=== PATIENT | female | born 1990 | race American Indian/Alaskan Native ===

== ENCOUNTER 2017-11-03 14:13 | Emergency (ER) | payer MEDICAID ==
--- NOTE | 2017-11-06 14:59 | ER ---
DATE SEEN: 11/03/2017 TIME SEEN: The patient was seen at 1435 hours. HISTORY OF PRESENT ILLNESS: This 27-year-old woman comes in with a history of her son having conjunctivitis for 2 days, got worse now. Both she and her daughter have itching in their eyes and rubbing their eyes. Mother is allergic to Ceclor. Otherwise mother is healthy. MEDICATIONS: No medications currently. ALLERGIES: Ceclor. REVIEW OF SYSTEMS: Negative. PHYSICAL EXAMINATION: VITAL SIGNS: Blood pressure 107/59, heart rate 85, respirations 15, oxygen saturation 98%, temperature is 36.8 degrees centigrade. HEENT: Mild injection of the sclera. Conjunctiva not injected. Subjective itching. No shiners. Nares negative. TMs negative. Pharynx without abnormality. No cervical adenopathy. No pretracheal adenopathy. No retroauricular adenopathy. LUNGS: Clear. HEART: Without murmur. ABDOMEN: Negative. ASSESSMENT/PLAN: Conjunctivitis. Treat with gentamicin ophthalmic drops 0.1%, 1-2 drops t.i.d. Follow up with doctor in one week if not improved. /[id number] ABBY/HENRI
== END 2017-11-03 15:21 | disposition home or self-care (01) ==
LOC: FB.ED 14:13
DX: H10.9 Unspecified conjunctivitis (principal)
CPT/HCPCS: 99283

== ENCOUNTER 2018-03-08 18:07 | Emergency (ER) | payer MEDICAID ==
--- NOTE | 2018-03-08 18:58 | EDM.PDOC ---
ED HPI GENERAL MEDICAL PROBLEM - General Stated Complaint: SOB Time Seen by Provider: 03/08/18 18:40 Source of Information: Reports: Patient History Limitations: Reports: No Limitations - History of Present Illness INITIAL COMMENTS - FREE TEXT/NARRATIVE: This pleasant 27-year-old woman states she has been coughing for a week and has sore throat and fever the last 2 days. She has mild anterior intercostal and also sternal chondral region discomfort with coughing. He notes discomfort in the (points to the intercostal region) intercostal muscles bilaterally anterior chest with her cough. Denies headaches, loss of consciousness or bowel discomfort GI symptoms of diarrhea or vomiting denies or frequency urgency dysuria symptoms. She is not . Has not been sexually active recently. 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: - Past Surgical History Female Surgical History: Reports: Section ED ROS GENERAL - Review of Systems Review Of Systems: See Below Constitutional: Reports: No Symptoms HEENT: Reports: Throat Pain Respiratory: Reports: Cough, Sputum, Other (Kilo sputum) Cardiovascular: Reports: No Symptoms Endocrine: Reports: No Symptoms GI/Abdominal: Reports: No Symptoms : Reports: No Symptoms Musculoskeletal: Reports: No Symptoms, Other (Chest wall discomfort and coughing ) Skin: Reports: No Symptoms Neurological: Reports: No Symptoms Psychiatric: Reports: No Symptoms Hematologic/Lymphatic: Reports: No Symptoms ED EXAM, GENERAL - Physical Exam Exam: See Below Free Text/Narrative:: Specimen particular fever sore throat and one week of coughing yellow productive sputum she is a nonsmoker Exam Limited By: No Limitations General Appearance: Alert, WD/WN, Mild Distress Eye Exam: Bilateral Eye: Normal Inspection Ears: Normal External Exam, Normal Canal, Hearing Grossly Normal, Normal TMs Ear Exam: Bilateral Ear: Auricle Normal, Canal Normal, TM normal Nose: Normal Inspection Throat/Mouth: Normal Inspection, Other (Minimal erythema) Head: Atraumatic, Normocephalic Neck: Normal Inspection, Supple, Non-Tender, Full Range of Motion Respiratory/Chest: No Respiratory Distress, Lungs Clear, Normal Breath Sounds, No Accessory Muscle Use, Chest Non-Tender Cardiovascular: Normal Peripheral Pulses, Regular Rate, Rhythm, No Edema, No JVD , No Murmur, No Rub Peripheral Pulses: 1+: Radial (L), Radial (R) GI/Abdominal: Normal Bowel Sounds, Soft, Non-Tender, No Organomegaly, No Distention, No Mass (Female) Exam: Deferred Rectal (Female) Exam: Deferred Back Exam: Normal Inspection, Full Range of Motion Extremities: Normal Inspection, Normal Range of Motion, Non-Tender, No Pedal Edema, Normal Capillary Refill Neurological: Alert, Oriented, CN II-XII Intact, Normal Cognition, Normal Gait, Normal Reflexes, No Motor/Sensory Deficits Psychiatric: Normal Affect, Normal Mood Skin Exam: Warm, Dry, Intact, Normal Color Lymphatic: No Adenopathy Course - Orders/Labs/Meds Orders: Active Orders 24 hr Category Date Time Status STREP SCRN A RAPID W CULT CONF [RM] Urgent Lab 03/08/18 18:45 Ordered Departure - Departure Time of Disposition: 18:50 Disposition: Home, Self-Care 01 Condition: Good Clinical Impression: Strep pharyngitis - Discharge Information Instructions: Strep Throat Referrals: Juni Campos MD [Primary Care Provider] - - My Orders Last 24 Hours: My Active Orders 03/08/18 18:45 STREP SCRN A RAPID W CULT CONF [RM] Urgent - Assessment/Plan Last 24 Hours: My Active Orders 03/08/18 18:45 STREP SCRN A RAPID W CULT CONF [RM] Urgent
[2018-03-08] MEDS ORDERED: Azithromycin 500 MG Tab PO ONE (19:03)
== END 2018-03-08 19:35 | disposition home or self-care (01) ==
LOC: FB.ED 18:07
DX: J02.0 Streptococcal pharyngitis (principal); Z88.1 Allergy status to other antibiotic agents
CPT/HCPCS: 87880; 99283; A9270

== ENCOUNTER 2018-08-16 14:35 | Emergency (ER) | payer MEDICAID ==
--- NOTE | 2018-08-16 15:22 | EDM.PDOC ---
ED HPI GENERAL MEDICAL PROBLEM - General Stated Complaint: STOMACH PAIN Time Seen by Provider: 08/16/18 15:00 Source of Information: Reports: Patient - History of Present Illness INITIAL COMMENTS - FREE TEXT/NARRATIVE: pt report having painful cramps all across her abd on and off X 6 weeks, report nausea and occasional emesis with this, also hard and painful BMs every other day , denies fever chills or any other associated sx or concerns, pt was seen at [place] for this 2 days ago, had a non-diagnostic CT and abd US along with unremarkable labs except for microscopic hematuria pt is on ABX for presumed UTI and has a follow up with urology . pt report regular periods and LMP is on august 04. . 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: [id number] Musculoskeletal History: Reports: Fracture Other Musculoskeletal History: hx R 5th digit, hx leg fx R, R ft fx - Infectious Disease History Infectious Disease History: Reports: Shingles - Past Surgical History HEENT Surgical History: Reports: Naso-Sinus Surgery Female Surgical History: Reports: Section Other Female Surgeries/Procedures: CS x 1 Musculoskeletal Surgical History: Reports: None Social & Family History - Family History Family Medical History: Noncontributory - Caffeine Use Caffeine Use: Reports: Energy Drinks, Soda, Tea ED ROS GENERAL - Review of Systems Review Of Systems: See Below Constitutional: Reports: No Symptoms GI/Abdominal: Reports: Constipation, Nausea, Vomiting. Denies: Bloody Stool Musculoskeletal: Reports: No Symptoms Skin: Reports: No Symptoms Neurological: Reports: No Symptoms Psychiatric: Reports: No Symptoms ED EXAM, GENERAL - Physical Exam Exam: See Below Exam Limited By: No Limitations General Appearance: Alert, Anxious, Mild Distress Nose: Normal Inspection Throat/Mouth: Normal Inspection Head: Atraumatic Respiratory/Chest: No Respiratory Distress Cardiovascular: Normal Peripheral Pulses GI/Abdominal: Normal Bowel Sounds, Soft, No Distention, Other (appear tender all across but no guarding or repound. ). No: Non-Tender Back Exam: Normal Inspection. No: CVA Tenderness (R), CVA Tenderness (L) Extremities: Normal Inspection, No Pedal Edema Neurological: Alert, Oriented Course - Vital Signs Text/Narrative:: recent work up from [facility] was reviewed and its non-diagnostic, UA today shows microscopic hematuria and upright abd xray shows increased stool through out colon without acute findings. i do feel that pt abd cramping are do to constipation, mng for constipation was recommended. pt here is comfortable after toradol. Last Recorded V/S: Last Vital Signs Temp 36.6 C 08/16/18 14:51 Pulse 80 08/16/18 14:51 Resp 20 08/16/18 14:51 BP 108/56 L 08/16/18 14:51 Pulse Ox 100 08/16/18 14:51 - Orders/Labs/Meds Orders: Active Orders 24 hr Category Date Time Status Abdomen 1V Upright [CR] Stat Exams 08/16/18 15:23 Taken Labs: Laboratory Tests 08/16/18 Range/Units 15:18 Urine Color Yellow (YELLOW) Urine Appearance Clear (CLEAR) Urine pH 8.0 H (5.0-6.5) Ur Specific [place] 1.010 (1.010-1.025) Urine Protein Negative (NEGATIVE) mg/dL Urine Glucose (UA) Normal (NORMAL) mg/dL Urine Ketones Negative (NEGATIVE) mg/dL Urine Occult Blood Large H (NEGATIVE) Urine Nitrite Negative (NEGATIVE) Urine Bilirubin Negative (NEGATIVE) Urine Urobilinogen Normal (NEGATIVE) mg/dL Ur Leukocyte Esterase Negative (NEGATIVE) Urine RBC 10-20 H (0-5) Urine WBC 0-5 (0-5) Ur Squamous Epith Cells Occasional (NS,R,O) Urine Bacteria Rare H (NS) Meds: Medications Discontinued Medications Generic Name Dose Route Start Last Admin Trade Name Freq PRN Reason Stop Dose Admin Ketorolac Tromethamine 60 mg 08/16/18 15:29 08/16/18 15:38 Toradol IM 08/16/18 15:30 60 mg ONETIME ONE Administration Departure - Departure Time of Disposition: 16:50 Disposition: Home, Self-Care 01 Clinical Impression: Constipation - Discharge Information *PRESCRIPTION DRUG MONITORING PROGRAM REVIEWED*: No *COPY OF PRESCRIPTION DRUG MONITORING REPORT IN PATIENT JAYRO: No Referrals: Juni Campos MD [Primary Care Provider] - Additional Instructions: maintain good hydration and high fiber diet, use over the counter stool softenres and laxatives as directed when needed for similar recurrent symptoms and follow with your physician if needed - My Orders Last 24 Hours: My Active Orders 08/16/18 15:23 Abdomen 1V Upright [CR] Stat - Assessment/Plan Last 24 Hours: My Active Orders 08/16/18 15:23 Abdomen 1V Upright [CR] Stat
[2018-08-16] MEDS ORDERED: Ketorolac 60 MG/2 ML SDV IM ONE (15:29)
[2018-08-16] MEDS ORDERED: Magnesium Citrate Solution 296 ML Bottle PO ONE (16:53)
--- NOTE | 2018-08-17 10:48 | CR ---
INDICATION: Abdominal pain. ABDOMEN: Two upright views of the abdomen were obtained 08/16/18 - no comparisons. An IUD is noted in place in the central portion of the pelvis. The pattern of gas and feces is nonspecific without evidence of free air or obstruction. A mild dextroconcave scoliosis of the upper lumbar spine is noted with tilt of the lumbar spine slightly to the left. No organomegaly, mass lesions, or pathologic calcifications were identified. IMPRESSION: 1. IUD in place. 2. Nonacute appearing abdomen. 3. Minimal scoliosis. MTDD
== END 2018-08-16 17:25 | disposition home or self-care (01) ==
LOC: FB.ED 14:35
DX: K59.00 Constipation, unspecified (principal); J45.909 Unspecified asthma, uncomplicated; Z88.8 Allergy status to other drugs, medicaments and biological substances; Z79.899 Other long term (current) drug therapy
CPT/HCPCS: 74018; 81001; 96372; 99284; A9270; J1885

== ENCOUNTER 2019-01-22 22:37 | Emergency (ER) | payer MEDICAID ==
[2019-01-22] MEDS ORDERED: traMADol 50 MG Tab PO ONE (22:38)
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
== END 2019-01-22 23:17 | disposition home or self-care (01) ==
LOC: FB.ED 22:37
DX: S09.90XA Unspecified injury of head, initial encounter (principal); S09.93XA Unspecified injury of face, initial encounter; S80.212A Abrasion, left knee, initial encounter; Y04.2XXA Assault by strike against or bumped into by another person, initial encounter
CPT/HCPCS: 99283; A9270

== ENCOUNTER 2020-03-25 20:31 | Emergency (ER) | payer MEDICAID ==
--- NOTE | 2020-03-25 21:01 | EDM.PDOC ---
ED HPI GENERAL MEDICAL PROBLEM - General Chief Complaint: Abdominal Pain Stated Complaint: CRAMPING; SPOTTING Time Seen by Provider: 03/25/20 21:30 Source of Information: Reports: Patient History Limitations: Reports: No Limitations - History of Present Illness INITIAL COMMENTS - FREE TEXT/NARRATIVE: LMP 02/04/2020, developed sudden onset of bleeding and lower abd cramps . States had urine confirmation test done last week now cramps getting worse , no fever or chills no discharge, no urinary symptoms Spotting but has painful cramps Onset Date: 03/25/20 Onset Time: 18:00 Duration: Getting Worse Location: Reports: Abdomen Quality: Reports: Ache, Dull Severity: Moderate Improves with: Reports: None Worsens with: Reports: None Context: Reports: Other Associated Symptoms: Reports: No Other Symptoms 8 Pain Score (Numeric/FACES): 8 - Related Data Allergies Allergy/AdvReac Type Severity Reaction Status Date / Time cefaclor [From Ceclor] Allergy Other Verified 01/22/19 22:48 Home Meds: Home Meds NK [No Known Home Meds] 03/25/20 [History] Past Medical History Respiratory History: Reports: Asthma Gastrointestinal History: Reports: GERD Genitourinary History: Reports: None 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: [id number] Musculoskeletal History: Reports: Fracture Other Musculoskeletal History: hx R 5th digit, hx leg fx R, R ft fx Neurological History: Reports: Migraines - Infectious Disease History Infectious Disease History: Reports: Shingles - Past Surgical History HEENT Surgical History: Reports: Naso-Sinus Surgery Female Surgical History: Reports: Section Other Female Surgeries/Procedures: CS x 1 Musculoskeletal Surgical History: Reports: None Social & Family History - Family History Family Medical History: Noncontributory - Tobacco Use Tobacco Use Status *Q: Former Tobacco User Used Tobacco, but Quit: Yes Month/Year Tobacco Last Used: 2019 - Caffeine Use Caffeine Use: Reports: Energy Drinks, Soda, Tea - Recreational Drug Use Recreational Drug Use: No ED ROS GENERAL - Review of Systems Review Of Systems: See Below Constitutional: Reports: No Symptoms HEENT: Reports: No Symptoms Respiratory: Reports: No Symptoms Cardiovascular: Reports: No Symptoms Endocrine: Reports: No Symptoms GI/Abdominal: Reports: Abdominal Pain Musculoskeletal: Reports: No Symptoms Skin: Reports: No Symptoms Neurological: Reports: No Symptoms ED EXAM, GI/ABD - Physical Exam Exam: See Below Exam Limited By: No Limitations General Appearance: Alert, WD/WN, No Apparent Distress Eyes: Bilateral: EOMI Nose: Normal Inspection Throat/Mouth: Normal Inspection Head: Atraumatic, Normocephalic Neck: Supple, Non-Tender GI/Abdominal Exam: Soft, Non-Tender, Tender (suprapubic discomfort) (Female) Exam: Adnexal Tenderness, Uterine Tenderness, Vaginal Bleeding Back Exam: Normal Inspection, Full Range of Motion Extremities: Normal Range of Motion, Non-Tender Neurological: Alert, Oriented, CN II-XII Intact Course - Vital Signs Last Recorded V/S: Last Vital Signs Temp 36.6 C 03/25/20 20:44 Pulse 63 03/25/20 20:44 Resp 18 03/25/20 20:44 BP 103/49 L 03/25/20 20:44 Pulse Ox - Orders/Labs/Meds Labs: Laboratory Tests 03/25/20 Range/Units 21:06 HCG, Quant 533 (<5) mIU/mL - Re-Assessments/Exams Free Text/Narrative Re-Assessment/Exam: 03/25/20 22:18 pt has serum HCG done : positive with 500 ( about 4weeks ) Departure - Departure Time of Disposition: 20:10 Disposition: Home, Self-Care 01 Condition: Good Clinical Impression: Threatened in early , Pelvic cramping - Discharge Information *PRESCRIPTION DRUG MONITORING PROGRAM REVIEWED*: Not Applicable *COPY OF PRESCRIPTION DRUG MONITORING REPORT IN PATIENT JAYRO: Not Applicable Instructions: Vaginal Bleeding During , First Trimester, Threatened Miscarriage, [id number] Referrals: Juni Campos MD [Primary Care Provider] - Forms: ED Department Discharge, ED Return to Work/School Form Additional Instructions: 1) yOU NEED REPEAT LABS DONE ON MONDAY EVENING ( HCG) 2) KEEP ULTRASOUND APPOINTMENT FOR MONDAY EVENING Sepsis Event Note (ED) - Evaluation Sepsis Screening Result: No Definite Risk - Focused Exam Vital Signs: Vital Signs Temp Pulse Resp BP 03/25/20 20:44 36.6 C 63 18 103/49 L
== END 2020-03-25 22:25 | disposition home or self-care (01) ==
LOC: FB.ED 20:31
DX: O20.9 Hemorrhage in early pregnancy, unspecified (principal); O99.511 Diseases of the respiratory system complicating pregnancy, first trimester; J45.909 Unspecified asthma, uncomplicated; Z88.1 Allergy status to other antibiotic agents; Z87.891 Personal history of nicotine dependence
CPT/HCPCS: 36415; 84702; 99282; 99284

== ENCOUNTER 2021-05-15 11:35 | Emergency (ER) | payer MEDICAID ==
--- NOTE | 2021-05-15 11:58 | EDM.PDOC ---
ED HPI GENERAL MEDICAL PROBLEM - General Stated Complaint: TOOTH PAIN Time Seen by Provider: 05/15/21 11:50 Source of Information: Reports: Patient History Limitations: Reports: No Limitations - History of Present Illness INITIAL COMMENTS - FREE TEXT/NARRATIVE: 30-year-old female who reports onset 2 days ago of some discomfort in her left upper tooth. Yesterday she began to have some swelling over her left face but it was mild the swelling has gotten progressively worse with time. She now reports she has pain in the tooth it is a throbbing type pain and she rates the pain as an 8/10. Pain does seem to radiate over the left side of her face and head. She has had no trouble swallowing. There has been no fever. She presents telling me that she has "an abscess". She has been swallowing okay but not really eating that well because it hurts to chew and put pressure on that tooth. She presents to the emergency department via private vehicle. There are no other associated signs or symptoms. There are no other modifying factors. Onset: Other (2 days ago) Duration: Getting Worse Location: Reports: Face (Left upper dental area and left face.) Quality: Reports: Ache, Throbbing Severity: Moderate Improves with: Reports: None Worsens with: Reports: Other (Chewing. Putting pressure on the left upper teeth) Context: Reports: Other (As above.) Associated Symptoms: Reports: No Other Symptoms (Except as above.) Treatments ADVICE NURSE: Reports: Other (see below) (Nothing.) Right Cheek Pain Score (Numeric/FACES): 4 - Related Data Allergies Allergy/AdvReac Type Severity Reaction Status Date / Time cefaclor [From [facility]] Allergy Other Verified 05/15/21 11:57 Home Meds: Home Meds Amoxicillin/Clavulanate K [Augmentin 875-125 MG] 1 tab PO BID 10 Days #20 tablet 05/15/21 [Rx] traMADol [Ultram] 50 mg PO Q6H PRN #8 tab 05/15/21 [Rx] Past Medical History Respiratory History: Reports: Asthma Gastrointestinal History: Reports: GERD 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: [id number] Musculoskeletal History: Reports: Fracture Other Musculoskeletal History: hx R 5th digit, hx leg fx R, R ft fx Neurological History: Reports: Migraines - Infectious Disease History Infectious Disease History: Reports: Shingles - Past Surgical History HEENT Surgical History: Reports: Naso-Sinus Surgery Female Surgical History: Reports: Section Other Female Surgeries/Procedures: CS x 1 Musculoskeletal Surgical History: Reports: None Social & Family History - Tobacco Use Tobacco Use Status *Q: Current Every Day Tobacco User - Caffeine Use Caffeine Use: Reports: Energy Drinks, Soda, Tea - Alcohol Use Alcohol Use History: No - Living Situation & Occupation 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[employer]) ED ROS ENT - Review of Systems Review Of Systems: See Below Constitutional: Denies: Fever, Chills HEENT: Reports: Dental Pain, Other (Facial pain and swelling) Respiratory: Denies: Shortness of Breath, Cough Cardiovascular: Denies: Chest Pain GI/Abdominal: Denies: Nausea, Vomiting : Denies: Frequency, Urgency Musculoskeletal: Denies: Neck Pain, Arm Pain, Back Pain Skin: Denies: Wound Neurological: Denies: Dizziness, Headache Psychiatric: Denies: Confusion Hematologic/Lymphatic: Denies: Easy Bleeding, Easy Bruising ED EXAM, ENT - Physical Exam Exam: See Below Exam Limited By: No Limitations General Appearance: Alert, WD/WN, Mild Distress Eye Exam: Bilateral Eye: EOMI, Normal Inspection, PERRL Ears: Normal External Exam, Hearing Grossly Normal Nose: Normal Inspection, Normal Mucousa, No Blood Mouth/Throat: Dental Abcess, Dental Pain, Dental Tenderness, Gum Swelling Head: Facial Swelling, Facial Tenderness Neck: Normal Inspection, Supple, Non-Tender, Full Range of Motion Respiratory/Chest: No Respiratory Distress, Lungs Clear, Normal Breath Sounds, No Accessory Muscle Use Cardiovascular: Normal Peripheral Pulses, Regular Rate, Rhythm, No JVD GI/Abdominal: Normal Bowel Sounds, Soft, Non-Tender Back: Normal Inspection, Full Range of Motion Extremities: Normal Inspection, Normal Range of Motion, No Pedal Edema Neurological: Alert, Oriented, CN II-XII Intact, Normal Cognition, No Motor/Sensory Deficits Psychiatric: Normal Affect Skin: Warm, Dry, Intact, Normal Color, No Rash Course - Vital Signs Last Recorded V/S: Last Vital Signs Temp 36.6 C 05/15/21 11:35 Pulse 92 05/15/21 11:35 Resp 18 05/15/21 11:35 BP 110/74 05/15/21 11:35 Pulse Ox 96 05/15/21 11:35 - Re-Assessments/Exams Free Text/Narrative Re-Assessment/Exam: 05/15/21 12:05: Patient with left upper dental premolar. There is some gingival erythema around the tooth and there is some left buccal facial swelling. No fluctuant area. The patient is nontoxic at this time. I will place the patient on Augmentin 875 mg twice daily for 10 days. I will also give her a small prescription of tramadol that she can use for moderate to severe pain. She was encouraged to use ibuprofen and Tylenol for her pain as well. Precautions and reasons for return to the emergency department were discussed with the patient while she was in the emergency department either detailed in the patient's discharge instructions. Departure - Departure Time of Disposition: 12:22 Disposition: Home, Self-Care 01 Condition: Good Clinical Impression: Dental abscess, Pain, dental, Left facial swelling - Discharge Information Prescriptions: Amoxicillin/Clavulanate K [Augmentin 875-125 MG] 1 tab PO BID 10 Days #20 tablet traMADol [Ultram] 50 mg PO Q6H PRN #8 tab PRN Reason: Moderate to severe pain Instructions: Dental Abscess, [id number], Dental Pain, [id number] Referrals: Juni Campos MD [Primary Care Provider] - Forms: ED Department Discharge Additional Instructions: You have a dental infection and your left upper tooth. This is what is causing the swelling and the pain of your left face. You can take Tylenol and ibuprofen as needed for ear pain. Medication as prescribed (Augmentin 875 mg, tramadol 50 mg). Increase your fluid intake. You will need to arrange to see a dentist as soon as she can. Back to the emergency department for trouble breathing, severe weakness or any other concerning signs or symptoms.
== END 2021-05-15 12:22 | disposition home or self-care (01) ==
LOC: FB.ED 11:35
DX: K04.7 Periapical abscess without sinus (principal); Z88.1 Allergy status to other antibiotic agents; Z72.0 Tobacco use
CPT/HCPCS: 99282